=== PATIENT | female | born 2000 | race Two or more races ===

== ENCOUNTER 2018-04-28 01:36 | Emergency (ER) | payer MEDICAID, OTHER ==
[2018-04-28 01:43] VITALS: BP 106/55
[2018-04-28] MEDS ORDERED: ONDANSETRON 2MG/ML, 2ML IVPush ONE (02:30)
[2018-04-28] MEDS ORDERED: PROMETHAZINE 25 MG/ML, 1ML IM ONE (02:30)
[2018-04-28] MEDS ORDERED: SODIUM CHLORIDE FLUSH 10ML SYR IVF ONE (02:30)
[2018-04-28] MEDS ORDERED: SODIUM CHLORIDE 0.9% 1,000ML IVBOLUS ONE (02:30)
[2018-04-28] MEDS ORDERED: MORPHINE SULFATE 4 MG/ML, 1ML IVPush PRN (02:30)
[2018-04-28] MEDS ORDERED: MAALOX/HYOSCYAMINE/LIDOCAINE 45 ML BTL PO ONE (02:30)
[2018-04-28] MEDS ORDERED: FAMOTIDINE 20 MG/2 ML IVP ONE (02:30)
[2018-04-28 02:32] LABS: BASOPHILS # (AUTO) 0.05 x10^3/uL (0-0.3); BASOPHILS % (AUTO) 1 % (0-1); EOSINOPHILS # (AUTO) 0.09 x10^3/uL (0-0.8); EOSINOPHILS % (AUTO) 1 % (1-7); LYMPHOCYTES # (AUTO) 1.92 x10^3/uL (1-6.1); LYMPHOCYTES % (AUTO) 32 % (22-44); MD NO; MEAN CORPUSCULAR HEMOGLOBIN 30.4 pg (27.0-34.8); MEAN CORPUSCULAR HGB CONC 34.3 g/dL (32.4-35.8); MEAN CORPUSCULAR VOLUME 88.8 fL (80-100); MEAN PLATELET VOLUME 8.9 fL (7.4-10.4); MONOCYTES # (AUTO) 0.39 x10^3/uL (0-1.4); MONOCYTES % (AUTO) 6 % (2-9); NEUTROPHILS # (AUTO) 3.63 x10^3/uL (1.8-8.0); NEUTROPHILS % (AUTO) 60 % (42-75); PLATELET COUNT 265 x10^3/uL (130-400); RED BLOOD COUNT 4.39 x10^6/uL (3.82-5.3); RED CELL DISTRIBUTION WIDTH 13.5 % (9.6-15.2)
[2018-04-28 02:38] LABS: ALANINE AMINOTRANSFERASE 29 U/L (12-78); ALBUMIN 4.2 g/dL (3.4-5.0); ANION GAP 13 mmol/L (5-15); CALCIUM 9.2 mg/dL (8.5-10.1); CHLORIDE 109 mmol/L (98-107); CREATININE 0.95 mg/dL (0.55-1.02)
[2018-04-28 02:43] LABS: ALKALINE PHOSPHATASE 73 U/L (45-117); BILIRUBIN,TOTAL 0.7 mg/dL (0.2-1.0); TOTAL PROTEIN 8.2 g/dL (6.4-8.2)
[2018-04-28] MEDS ORDERED: PROMETHAZINE 25 MG/ML, 1ML ONE (02:55)
[2018-04-28] MEDS ORDERED: MAALOX/HYOSCYAMINE/LIDOCAINE 45 ML BTL ONE (02:56)
[2018-04-28] MEDS ORDERED: ONDANSETRON 2MG/ML, 2ML ONE (02:56)
[2018-04-28] MEDS ORDERED: FAMOTIDINE 20 MG/2 ML ONE (02:56)
== END 2018-04-28 04:18 | disposition home or self-care (01) ==
LOC: ED 04:12
DX: K25.9 Gastric ulcer, unspecified as acute or chronic, without hemorrhage or perforation (principal); K59.00 Constipation, unspecified; R11.2 Nausea with vomiting, unspecified
CPT/HCPCS: 36415; 74022; 80053; 83690; 84703; 85025; 86677; 96361; 96372; 96374; 96375; 99285; J2405; J2550; J3490; J7030

== ENCOUNTER 2018-04-29 23:49 | Emergency (ER) | payer SELFPAY ==
[~2018-04-29] VITALS: Ht 160 cm; Wt 57.9 kg
[2018-04-29 23:50] VITALS: BP 121/61
[2018-04-30] MEDS ORDERED: MAALOX/HYOSCYAMINE/LIDOCAINE 45 ML BTL PO ONE
[2018-04-30] MEDS ORDERED: ONDANSETRON ODT 4 MG PO ONE
[2018-04-30] MEDS ORDERED: MAALOX/HYOSCYAMINE/LIDOCAINE 45 ML BTL ONE (00:01)
[2018-04-30] MEDS ORDERED: ONDANSETRON ODT 4 MG ONE (00:01)
== END 2018-04-30 00:44 ==
LOC: ED 23:59
DX: K29.00 Acute gastritis without bleeding (principal)
CPT/HCPCS: 99283; Q0162

== ENCOUNTER 2018-05-11 01:36 | Emergency (ER) | payer SELFPAY ==
[~2018-05-11] VITALS: Ht 160 cm; Wt 54.0 kg
[2018-05-11] MEDS ORDERED: ONDANSETRON ODT 4 MG ONE ×2 (02:22→03:02)
[2018-05-11] MEDS ORDERED: ONDANSETRON ODT 4 MG PO ONE ×2 (02:30→03:00)
[2018-05-11 03:37] VITALS: BP 126/80
== END 2018-05-11 03:56 | disposition home or self-care (01) ==
LOC: ED 02:09
DX: R11.2 Nausea with vomiting, unspecified (principal)
CPT/HCPCS: 99283; Q0162

== ENCOUNTER 2018-10-23 18:02 | Emergency (ER) | payer MEDICAID ==
[~2018-10-23] VITALS: Ht 160 cm; Wt 49.0 kg
[2018-10-23 18:05] VITALS: BP 128/84
[2018-10-23] MEDS ORDERED: LIDOCAINE-MPF 1%, 5ML ONE (18:26)
[2018-10-23] MEDS ORDERED: LIDOCAINE 1%, 10ML INFIL ONE (18:30)
--- NOTE | 2018-10-23 18:32 | NUR ---
pt refusing EKG stating, "there's nothing wrong with my heart, I don't want you to do this. I'm just here for my finger, I have to catch the bus at 7." pt educated regarding reasoning for EKG, to evaluate tachycardia. pt educated regarding risk of refusal, demonstrates undertstanding. JOE Hart notified.
--- NOTE | 2018-10-23 18:36 | NUR ---
pt seen ambulating out of dept with friend, gait steady
== END 2018-10-23 18:38 | disposition left against medical advice (07) ==
LOC: ED 18:15
DX: S61.303A Unspecified open wound of left middle finger with damage to nail, initial encounter (principal); W22.8XXA Striking against or struck by other objects, initial encounter; Y93.89 Activity, other specified; Y92.009 Unspecified place in unspecified non-institutional (private) residence as the place of occurrence of the external cause; Y99.8 Other external cause status
CPT/HCPCS: 99281; 99283